=== PATIENT | female | born 1960 | race Caucasian/White ===

== ENCOUNTER 2022-10-25 12:15 | Observation (INO) | payer MEDICAID, SELFPAY ==
[2022-10-25 12:16] VITALS: BP 98/60; PULSE 112; RESP 16; TEMP 36.6; O2SAT 96
--- NOTE | 2022-10-25 12:50 | RAD_ITS ---
STUDY: X-RAY CHEST REASON FOR EXAM: Female, 62 years old. Chest pain TECHNIQUE: Single AP portable view of the chest. COMPARISON: None. FINDINGS: EKG electrodes are seen. The lungs are clear and expanded. There is no demonstrated pleural abnormality. Normal size heart. Normal mediastinum and corey. Normal visualized pulmonary arteries. Normal visualized aortic arch and descending thoracic aorta. There is a levoscoliosis of the thoracic spine. Deformity of the left ribs most likely secondary to prior trauma. Calcific tendinitis of the right shoulder. There is no demonstrated abnormality of the visualized soft tissue structures of the upper abdomen. RAD/Chest 1 View (Portable) IMPRESSION: The lungs are clear. Deformity of the left ribs suggestive of prior trauma. Electronically Signed: Oswald Hurt MD at 13:30 EDT ,
--- NOTE | 2022-10-25 12:50 | EKG12_ITS ---
Test Reason : Blood Pressure : / mmHG Vent. Rate : 112 BPM Atrial Rate : 112 BPM P-R Int : 136 ms QRS Dur : 074 ms QT Int : 310 ms P-R-T Axes : 036 -38 011 degrees QTc Int : 423 ms Sinus tachycardia Left axis deviation Inferior infarct , age undetermined Anterolateral infarct , age undetermined Abnormal ECG Confirmed by SIOMARA SALAZAR, LISA ([id number]), development editor MARY MATA ([id number]) on 10/27/2022 9:35:37 AM Referred By: Confirmed By:LISA STRINGER MD
--- NOTE | 2022-10-25 12:51 | EDS_ITS ---
HPI History of Present Illness Chief Complaint: Syncope Detail of Chief Complaint: Near syncope and chest pain Informant: patient Narrative Narrative: Patient presents to the emergency department complaint of not feeling well for about 3 months. Patient's been following up with her primary care physician who has been doing some work-up and some point they were going to obtain a stress test as she has had some intermittent chest discomfort. She has never had a stress test before and has no known heart history. Today while at work patient began feeling lightheaded and feeling like she was in a pass out x3. Patient's had intermittent retrosternal discomfort and burning sensation. She had discomfort in her left shoulder. Today she has discomfort into her jaw. Patient has history of hypertension and history of sciatica. She denies recent travel or surgery. She has had prior cholecystectomy. She does not smoke. Prior similar symptoms: Yes PFSH PFSH Medical History no medical history Allergy/AdvReac Type Severity Reaction Status Date / Time Seasonal Allergies: Uncoded Allergy Rash Verified 10/25/22 12:18 Social History Smoking Status: Smoker, status unknown ROS ROS ED Review of Systems ROS Unobtainable: other Constitutional Constitutional ED: Reports lethargy; Denies chills, fever(s), sweats or weight loss Eyes Eyes: Denies blurry vision, change in vision or diplopia ENT ENT ED: Denies rhinorrhea or sore throat Cardiovascular Cardiovascular: Reports chest pain; Denies orthopnea or racing heartbeat Respiratory/Chest Respiratory/Chest: Denies cough, dyspnea, dyspnea on exertion, orthopnea or sputum Gastrointestinal Gastrointestinal: Denies abdominal pain, diarrhea, nausea or vomiting Genitourinary Genitourinary ED: Denies dysuria, hematuria or urinary frequency Musculoskeletal Musculoskeletal: Denies arthralgias, back pain, myalgias or neck pain Integumentary Denies abscess, Abrasions or rash Neurologic Neurologic: Reports other Details: Lightheadedness and dizziness ; Denies headache(s) or weakness Psychiatric Psychiatric: Denies anxiety, depression or suicidal thoughts Endocrine Endocrinology: Denies polydipsia, polyphagia or polyuria Hematologic/Lymphatic Hematologic/Lymphatic: Denies easy bleeding, easy bruising or lymphadenopathy Allergic/Immunologic Allergic/Immunologic ED: Denies mouth swelling, tongue swelling or urticaria EXAM Physical Exam Const Vital Signs: 10/25/22 12:16 10/25/22 12:16 10/25/22 12:50 Temperature 97.8 F Temperature Source Temporal Pulse Rate 112 H Respiratory Rate 16 Respiratory Effort Normal Blood Pressure 98/60 Blood Pressure Mean 72 Pulse Ox 96 Oxygen Delivery Method Room Air Room Air Positive well nourished and well developed General Appearance ED: well developed and NAD HEENT Reports TM's clear and moist mucous membranes normocephalic and atraumatic; Negative for trauma or tenderness Tympanic Membrane ED: Yes TM's clear Eyes PERRL and EOMs intact bilaterally General Eye ED: Negative for pale conjunctiva or scleral icterus Neck no lymphadenopathy, supple and no JVD General: Negative for tenderness Chest Wall inspection of chest normal and palpation of chest normal Chest: Negative for tenderness Resp normal respiratory effort and clear to auscultation bilaterally Effort and Inspection: Negative for respiratory distress or pain with movement Auscultation: Negative for rhonchi, wheezes or diminished lung sounds Cardio regular rate, regular rhythm, S1 normal heart sound, S2 normal heart sound and no murmurs Peripheral Pulses: pulses 2+ throughout GI normal to inspection, nondistended, normoactive bowel sounds, soft to palpation, non-tender, non-distended and no masses Back/Spine no CVA tenderness and no thoracic nor lumbar tenderness Extremity normal to inspection General Extremety ED: Negative for edema General Extremity: Negative for edema Neuro oriented x3, CN's II-XII intact bilaterally, no sensory deficits noted and gait normal Sensorium / Orientation: awake, alert, oriented to person, oriented to place and oriented to time Motor Exam: strength 5/5 throughout and strength abnormal Psych mental status grossly normal Skin no rashes or lesions noted and no wounds MDM MDM MDM Narrative Medical decision making narrative: Patient presents to the emergency department with concern for chest pain and not feeling well. In the differential would be acute coronary syndrome versus PE versus cardiac dysrhythmia. She complains of near syncopal episodes today. IV line established. EKG obtained arrival shows sinus rhythm with a ventricular rate of [address] changes. CBC with differential showed an elevated white of 14.9 with hemoglobin of 14.5 and hematocrit of 41 and platelet count of 313. Chemistries showed a sodium 129 which I suspect is related to the elevated blood glucose of 583. BUN was 23 and creatinine 1.96. Troponin was normal. D-dimer ordered and pending. Chest x-ray obtained was unremarkable. Patient was ordered lispro 10 units subcu. Case discussed with hospitalist to evaluate patient for admission for diagnosis chest pain and new onset hyperglycemia. There is no evidence of DKA. Lab Data Labs: Laboratory Results - last 24 hr 10/25/22 10/25/22 10/25/22 12:30 12:30 12:30 WBC 14.9 H RBC 4.40 Hgb 14.5 Hct 41.4 MCV 94.1 MCH 33.0 H MCHC 35.0 RDW Std Deviation 43.3 RDW Coeff of Arvin 12.4 Plt Count 313 MPV 10.6 Immature Gran % (Auto) 0.800 Neut % (Auto) 72.1 H Lymph % (Auto) 19.3 [place] % (Auto) 6.8 Eos % (Auto) 0.5 Baso % (Auto) 0.5 Absolute Neuts (auto) 10.8 H Absolute Lymphs (auto) 2.88 Nucleated RBC % 0 Sodium 129 L Potassium 4.0 Chloride 91 L Carbon Dioxide 25.0 Anion Gap 13 BUN 23 H Creatinine 1.96 H Est GFR (MDRD) Af Amer 33 L Est GFR (MDRD) Non-Af 28 L BUN/Creatinine Ratio 11.7 Glucose 583 H* Calcium 9.5 Troponin I High Sens 4 Cancelled Radiography Diagnostic Testing: Clinical Impression(s) from Imaging Studies Chest X-Ray 10/25/22 12:50 IMPRESSION: The lungs are clear. Deformity of the left ribs suggestive of prior trauma. Electronically Signed: Oswald Hurt MD at 13:30 EDT , 1 view chest x-ray obtained interpreted by myself as no evidence of infiltrate or pneumothorax or acute disease process. Radiology in agreement. EKG Initial EKG: Attestation: I personally reviewed and interpreted this EKG as follows: Comments: Sinus rhythm with a rate of [address] changes Discharge Plan Dx/Rx/DC Orders Clinical Impression: Chest pain, Acute hyperglycemia, Acute renal insufficiency, Near syncope Disposition Disposition: [facility]
[2022-10-25 12:58] LABS: Absolute Lymphocyte Count 2.88 X10^3/uL (0.83-4.51); Absolute Neutrophil Count 10.8 X10^3/uL (2.0-7.7); Basophil# 0.08 X10^3/uL; Basophil% 0.5 % (0-1); Eosinophil# 0.08 X10^3/uL; Eosinophils% 0.5 % (0-5); Hematocrit 41.4 % (37-47); Hemoglobin 14.5 g/dL (12.0-15.0); Lymphocyte # 2.88 X10^3/ul (0.83-4.51); Lymphocyte % 19.3 % (19-41); Mean Corpuscular Volume 94.1 fL (81-99); Mean Platelet Vol. 10.6 fl (6.2-12.0); Monocyte# 1.02 X10^3/uL; Monocyte% 6.8 % (0-10); NRBC Flagged by Analyzer 0 % (0-5); Neutrophil # 10.75 X10^3/uL (2.7-7.7); Neutrophil % 72.1 % (47-70); Platelet Count 313 K/mm3 (150-450); RBC Distribution Width CV 12.4 % (11.6-14.6); RBC Distribution Width SD 43.3 fl (35.1-43.9); White Blood Count 14.9 K/mm3 (4.4-11.0)
[2022-10-25 13:18] LABS: Anion Gap 13 (5-15); BUN 23 mg/dL (7-18); BUN/Creat Ratio 11.7 RATIO (10-20); Calcium,Total 9.5 mg/dL (8.5-10.1); Chloride 91 mmol/L (98-107); Creatinine, Serum 1.96 mg/dL (0.55-1.02); EST Glomerular Filtration Rate 28 mL/min (>60); Est Glom Filt Rate - Afr Amer 33 mL/min (>60); Glucose 583 mg/dL (74-106); Sodium Level 129 mmol/L (136-145); Troponin-I HS (w/2H Reflex) 4 pg/mL (3.0-54.0)
[2022-10-25] MEDS: 0.9% Normal Saline 1,000 ML 150 ML IV ×3 (13:18→21:55)
[2022-10-25] MEDS: Aspirin 81 MG TAB.CHEW 324 MG PO (13:18)
--- NOTE | 2022-10-25 13:31 | HP.PCM.HOS_ITS ---
HPI - General General Date of Admission: 10/25/22 Date of Service: 10/25/22 Chief Complaint: dizziness, chest pain HPI Narrative ARAM GLYNN, is a 62 F with a PMH as outlined who presents via the ED On 10/25/2022 with a complaint of dizziness and lightheadedness and chest pain. SHe said she had been having such recurrent symptoms for ~ 3 months prior to admission, with intermittent chest pain> SHe had been seeing her PCP who had been working her up, and plan was for her to have an outpatient stress test. She said she was at work today when she started having chest pain, lightheadedness and dizziness. She felt like she was going to pass out, but didnt. Her chest pain was retrosternal and burning in nature. Review of systems was otherwise negative. VItals were temperature of 97.8F, with WA of 112, BP of 98/60 and RR of 16. She was saturating at 96% on room air. CBC showed wbc of 14.9, Hb of 14.5 nad platelets of 313. CHemistry showed sodium of 129, bicarb of 25, Cr of 1.96 and glucose of 583. No baseline labs available in the EMR. CXR showed no acute cardiopulmonary process. Initial troponin was negative. EKG showed no acute ST changes. SHe is being admitted to be managed for chest pain to rule out ACS, as well as hyperglycemia in the setting of newly diagnosed diabetes. [facility] Medical History (Updated 10/25/22 @ 14:43 by Narcisa Aparicio) Diabetes Former smoker Hypertension Osteoporosis Medical History no medical history Home Medications amitriptyline 100 mg tablet 100 mg PO DAILY INSOMNIA 10/25/22 [History Last Taken 10/24/22] celecoxib 200 mg capsule 200 mg PO BID PAIN 10/25/22 [History Last Taken 10/25/22] citalopram 20 mg tablet 20 mg PO DAILY DEPRESSION 10/25/22 [History Last Taken 10/25/22] estradiol 0.01% (0.1 mg/gram) vaginal cream 1 applic vaginal UD HORMONES 10/25/22 [History Last Taken Unknown] fluticasone propionate 50 mcg/actuation nasal spray,suspension 1 spray intranasal BID NASAL CONGESTION 10/25/22 [History Last Taken 10/25/22] gabapentin 300 mg capsule 300 mg PO TID NERVE PAIN 10/25/22 [History Last Taken 10/25/22] lisinopril 10 mg tablet 10 mg PO DAILY BLOOD PRESSURE 10/25/22 [History Last Taken 10/25/22] omeprazole 20 mg capsule,delayed release 20 mg PO BID ACID REFLUX 10/25/22 [History Last Taken 10/25/22] Allergy/AdvReac Type Severity Reaction Status Date / Time Seasonal Allergies: Uncoded Allergy Rash Verified 10/25/22 12:18 Surgical History (Updated 10/25/22 @ 14:43 by Narcisa Aparicio) History of cholecystectomy Social History Smoking Status: Smoker, status unknown ROS Constitutional Constitutional: Reports fatigue, malaise and weakness; Denies anorexia, change in weight, chills or fever(s) Eyes Eyes: Denies change in vision ENT HEENT: Denies dysphagia, headache(s) or sore throat Cardiovascular Cardiovascular: Reports lightheadedness and rapid heart rate; Denies chest pain, edema, orthopnea, palpitations, paroxysmal nocturnal dyspnea or syncope Respiratory/Chest Respiratory/Chest: Denies cough, dyspnea, shortness of breath at rest, shortness of breath with exertion or wheezing Gastrointestinal Gastrointestinal: Denies abdominal pain, constipation, diarrhea, nausea or vomiting Genitourinary Genitourinary: Denies burning urination or dysuria Musculoskeletal Musculoskeletal: Denies arthralgias or back pain Neurologic Neurologic: Reports dizziness; Denies confusion, focal weakness, headache(s), numbness, paresthesias, seizure-like activity, seizures or syncope Psychiatric Psychiatric: Denies anxiety or depression Hematologic/Lymphatic Hematologic/Lymphatic: Denies anemia Vital Signs Vital Signs Vital Signs: 10/25/22 12:16 10/25/22 12:16 10/25/22 12:50 Temperature 97.8 F Temperature Source Temporal Pulse Rate 112 H Respiratory Rate 16 Respiratory Effort Normal Blood Pressure 98/60 Blood Pressure Mean 72 Pulse Ox 96 Oxygen Delivery Method Room Air Room Air Physical Exam Const alert, oriented x3 and no apparent distress General Appearance: cooperative HEENT normocephalic, head/scalp atraumatic, hearing grossly normal bilaterally and moist oral mucous membranes Mouth: oral and palatal mucosa normal Resp normal respiratory effort, no retractions, no use of accessory muscles and clear to auscultation bilaterally Cardio regular rhythm, S1 normal heart sound, S2 normal heart sound and no murmurs Cardio Narrative: tachycardic GI normal to inspection, nondistended, normoactive bowel sounds, soft to palpation and non-tender Extremity normal to inspection, full ROM and no clubbing, cyanosis or edema Neuro oriented x3, CN's II-XII intact bilaterally, moves all extremities and no focal motor deficits Sensorium / Orientation: awake and alert Motor Exam: strength 5/5 throughout Psych affect normal Results Lab / Micro Data Result Diagrams: 10/25/22 12:30 10/25/22 12:30 Labs: Laboratory Results - last 24 hr 10/25/22 12:30: WBC 14.9 H, RBC 4.40, Hgb 14.5, Hct 41.4, MCV 94.1, MCH 33.0 H, MCHC 35.0, RDW Std Deviation 43.3, RDW Coeff of Arvin 12.4, Plt Count 313, MPV 10.6, Immature Gran % (Auto) 0.800, Neut % (Auto) 72.1 H, Lymph % (Auto) 19.3, [place] % (Auto) 6.8, Eos % (Auto) 0.5, Baso % (Auto) 0.5, Absolute Neuts (auto) 10.8 H, Absolute Lymphs (auto) 2.88, Nucleated RBC % 0 10/25/22 12:30: Sodium 129 L, Potassium 4.0, Chloride 91 L, Carbon Dioxide 25.0, Anion Gap 13, BUN 23 H, Creatinine 1.96 H, Est GFR (MDRD) Af Amer 33 L, Est GFR (MDRD) Non-Af 28 L, BUN/Creatinine Ratio 11.7, Glucose 583 H*, Calcium 9.5, Troponin I High Sens 4 10/25/22 12:30: Troponin I High Sens Cancelled Radiology Impression Chest X-Ray 10/25/22 12:50 IMPRESSION: The lungs are clear. Deformity of the left ribs suggestive of prior trauma. Electronically Signed: Oswald Hurt MD at 13:30 EDT , Assessment & Plan Assessment/Plan (1) Chest pain: (2) Acute hyperglycemia: (3) Acute renal insufficiency: PLAN: Plan #Hyperglycemia in the setting of probable newly diagnosed diabetes mellitus * admit to PCU * hydrate with IVF * check A1C * was iven SQ lispro 10 units in the ED * will continue and hydrate aggressively with IVF. Anion gap not elevated * if kidney function improves, will place on metformin * A1c is 12.6 the patient started on Lantus 10 units daily. Start on metformin once creatinine improves. * #Chest pain to rule out ACS * initial troponin is negative. Will cycle * EKG showed no acute ST changes * if troponins remain negative, will get stress test tomorrow * check 2D echo * SL nitroglycerin prn * #ANNIA: Cr is 1.96. NO baseline in the EMR. Radha hydrate with IVF and trend Cr. If it doesnt improve, will do further workup. #Near syncope: likely due to hyperglycemia, dehydration and chest pain. PT.OT on board. being hydrated with IVF. Fall precautions DVT prophylaxis: lovenox, renally dosed Code status:full code * Patient counseled extensively about different types of CODE STATUS including full code, DNR CCA and DNR CCA. Patient elects to be full code. * Total [id number] time 18 minutes. Total time spent on evaluation and management of patient, reviewing chart and specialist notes, discussing plan with patient and her , discussion with nursing and ancillary staff as well as documentation: 79 mins Charges/Coding Visit Charges Inpatient E&M: 87802 Init Hosp L3 Procedures Hospitalists Procedures: 65442 Advncd Care Plan 30 Min
[2022-10-25 13:38] VITALS: BP 134/76; PULSE 78; RESP 16; TEMP 36.6; O2SAT 99
[2022-10-25 13:46] LABS: D-Dimer Quantitative (DVT/PE) < 0.27 FEU/ug/m (0.27-0.49)
[2022-10-25 14:01] VITALS: BP 122/74; BP 125/72; BP 135/78; PULSE 86; PULSE 93; PULSE 97
[2022-10-25] MEDS: Insulin Lispro 100 UNIT/ML INSULN.PEN 10 UNIT SC (14:07)
[2022-10-25 14:08] VITALS: BMI 36.9
[2022-10-25 14:10] VITALS: BP 145/78; PULSE 89; RESP 18; TEMP 35.8; O2SAT 98
[2022-10-25 14:17] LABS: Mucous, Urine 0 SEEN /hpf (<or=2+)
[2022-10-25 14:20] VITALS: BP 137/62; PULSE 92; RESP 17; TEMP 36.7; O2SAT 96
--- NOTE | 2022-10-25 14:30 | EKG12_ITS ---
Test Reason : POST ADMISSION Blood Pressure : / mmHG Vent. Rate : 086 BPM Atrial Rate : 086 BPM P-R Int : 158 ms QRS Dur : 070 ms QT Int : 326 ms P-R-T Axes : 036 -35 013 degrees QTc Int : 390 ms Normal sinus rhythm Left axis deviation Inferior infarct , age undetermined Anteroseptal infarct , age undetermined Abnormal ECG When compared with ECG of 25-OCT-2022 12:26, MANUAL COMPARISON REQUIRED, DATA IS UNCONFIRMED Confirmed by SIOMARA SALAZAR, LISA ([id number]), production editor MARY MATA ([id number]) on 10/27/2022 10:01:30 AM Referred By: CHIN Confirmed By:LISA STRINGER MD
[2022-10-25 14:37] VITALS: BMI 34.5
[2022-10-25 14:53] LABS: Reflex Troponin-HS? (from REC) Y
[2022-10-25 15:07] LABS: Color, Urine Yellow (Yellow); Glucose, Dipstick 1000 mg/dl (Normal); Ketone-Dipstick Negative (Negative); Leukocyte Esterase-Dipstick 100 /ul (Negative); Nitrite-Dipstick Negative (Negative); Occult Blood-Urine 25 /ul (Negative); Protein-Dipstick 30 mg/dl (Negative); Urine Bilirubin Dipstick Negative (Negative); Urine Clarity Sl. Cloudy (Clear); Urine Urobilinogen Normal (Normal)
[2022-10-25 15:18] LABS: Amorphous Sediment 1+ URATE; Bacteria 1+ /hpf (None Seen); Red Blood Cells-Urine 0-5 SEEN /hpf (0-5); Squamous Epithelial Cells - UA 5-10 SEEN /hpf (5-10); White Blood Cells 5-10 SEEN /hpf (0-5)
[2022-10-25 15:36] LABS: Bedside Glucose 365 mg/dL (74-106)
[2022-10-25 16:27] LABS: Troponin-I HS 4 pg/mL (3.0-54.0)
[2022-10-25 17:10] LABS: Bedside Glucose 407 mg/dL (74-106)
[2022-10-25 18:05] LABS: Hemoglobin A1c 12.6 % (3.8-5.6)
[2022-10-25 19:37] LABS: Troponin-I HS < 3 pg/mL (3.0-54.0)
[2022-10-25 20:45] VITALS: BP 115/58; PULSE 83; RESP 16; TEMP 36.5; O2SAT 97
[2022-10-25] MEDS: Gabapentin 300 MG Capsule PO (21:55)
[2022-10-25] MEDS: Insulin Glargine-YFGN 100 UNIT/ML Pen 10 UNIT SC (21:59)
[2022-10-25] MEDS: Insulin Lispro 100 UNIT/ML INSULN.PEN SC (22:01)
[2022-10-25] MEDS: Pantoprazole Sodium 20 MG Tablet PO (22:06)
[2022-10-25 23:56] LABS: Bedside Glucose 376 mg/dL (74-106)
[2022-10-26 02:45] VITALS: BP 110/64; PULSE 80; RESP 16; TEMP 36.1; O2SAT 96
[2022-10-26 05:52] LABS: Absolute Lymphocyte Count 3.17 X10^3/uL (0.83-4.51); Absolute Neutrophil Count 5.5 X10^3/uL (2.0-7.7); Basophil# 0.07 X10^3/uL; Basophil% 0.7 % (0-1); Eosinophil# 0.22 X10^3/uL; Eosinophils% 2.3 % (0-5); Hemoglobin 12.5 g/dL (12.0-15.0); Lymphocyte # 3.17 X10^3/ul (0.83-4.51); Lymphocyte % 32.6 % (19-41); Mean Corp Hgb Conc 32.9 g/dL (32-36); Mean Corpuscular Hgb 31.6 pg (27.0-32.0); Mean Corpuscular Volume 96.2 fL (81-99); Mean Platelet Vol. 10.6 fl (6.2-12.0); Monocyte# 0.67 X10^3/uL; Monocyte% 6.9 % (0-10); NRBC Flagged by Analyzer 0 % (0-5); Neutrophil # 5.53 X10^3/uL (2.7-7.7); Neutrophil % 56.9 % (47-70); Platelet Count 274 K/mm3 (150-450); RBC Distribution Width CV 12.7 % (11.6-14.6); RBC Distribution Width SD 45.4 fl (35.1-43.9); Red Blood Count 3.95 M/mm3 (4.2-5.4); White Blood Count 9.7 K/mm3 (4.4-11.0)
--- NOTE | 2022-10-26 05:55 | ECHOD_ITS ---
Reason For Study: Chest pain Procedure This was a 2D Doppler, Color Flow transthoracic echocardiogram. Exam performed in department. Left Ventricle Normal left ventricle. The estimated ejection fraction is 55-60% %. Right Ventricle Normal right ventricle. Normal systolic function. Atria Normal left atrium. Normal right atrium. Mitral Valve The mitral valve is structurally normal. No prolapse or stenosis seen. Trivial mitral valve insufficiency. Tricuspid Valve Normal tricuspid valve. Trivial tricuspid valve insufficiency. Aortic Valve Normal aortic valve. Mild (1+) aortic valve insufficiency. Pulmonic Valve The pulmonic valve is not well visualized. Great Vessels Normal aortic root. Pericardium/Pleural No pericardial effusion. MMode/2D Measurements & Calculations LVIDd: 4.1 cm IVSd: 0.93 cm Ao root diam: 3.0 cm LVIDs: 2.6 cm LVPWd: 0.97 cm RVDd: 2.9 cm FS: 36.4 % LAV(MOD-bp): 33.7 ml LVAd ap4: 22.2 cm2 LVAd ap2: 23.9 cm2 LAV(MOD-bp) Indexed: 17.6 ml/m2 LVLd ap4: 7.1 cm LVLd ap2: 7.4 cm LAV(MOD-sp2): 38.6 ml EDV(MOD-sp4): 59.3 ml EDV(MOD-sp2): 65.9 ml LAV(MOD-sp4): 29.5 ml EDV(sp4-el): 58.7 ml EDV(sp2-el): 65.9 ml LVAs ap4: 12.1 cm2 LVAs ap2: 14.5 cm2 LVLs ap4: 5.7 cm LVLs ap2: 6.6 cm ESV(MOD-sp4): 22.2 ml ESV(MOD-sp2): 28.1 ml ESV(sp4-el): 22.0 ml ESV(sp2-el): 27.2 ml EF(MOD-sp4): 62.5 % EF(MOD-sp2): 57.3 % EF(sp4-el): 62.6 % SV(MOD-sp4): 37.0 ml SV(MOD-sp2): 37.8 ml SV(sp4-el): 36.7 ml LA dimension(2D): 3.5 cm LA A4 area: 13.4 cm2 RA A4 area: 10.3 cm2 TAPSE: 2.0 cm Time Measurements MV dec time: 0.23 sec Doppler Measurements & Calculations MV E max avelino: 68.8 cm/sec Lat Peak E' Avelino: 10.3 cm/sec Med Peak E' Avelino: 7.5 cm/sec MV A max avelino: 97.4 cm/sec E/E' lat: 6.7 E/E' med: 9.2 MV E/A: 0.71 MV dec slope: 295.7 cm/sec2 Ao V2 max: 156.7 cm/sec AI max avelino: 451.2 cm/sec Ao max P.8 mmHg AI max P.4 mmHg Ao V2 mean: 112.6 cm/sec AI dec slope: 315.1 cm/sec2 Ao mean P.7 mmHg AI P1/2t: 419.4 msec Ao V2 VTI: 32.1 cm AV (velocity ratio): 0.69 LV V1 max: 115.9 cm/sec PA V2 max: 99.9 cm/sec LV V1 max P.4 mmHg LV V1 mean P.9 mmHg LV V1 mean: 80.0 cm/sec LV V1 VTI: 22.2 cm ECHO/Echo Complete Interpretation Summary The estimated ejection fraction is 55-60% %. No previous echocardiogram to compare Ordering Physician: Carey Garcia Referring Physician: Kartik Patel MD Performed By: Tonya De Leon RDCS
[2022-10-26] MEDS: Gabapentin 300 MG Capsule PO ×2 (06:15→14:27)
[2022-10-26 06:50] LABS: Bedside Glucose 206 mg/dL (74-106)
[2022-10-26 06:56] LABS: Anion Gap 5 (5-15); BUN 21 mg/dL (7-18); BUN/Creat Ratio 32.9 RATIO (10-20); Calcium,Total 8.8 mg/dL (8.5-10.1); Chloride 104 mmol/L (98-107); Creatinine, Serum 0.64 mg/dL (0.55-1.02); EST Glomerular Filtration Rate 101 mL/min (>60); Est Glom Filt Rate - Afr Amer 122 mL/min (>60); Estimated Creatinine Clearance 77.33 ml/min; Glucose 172 mg/dL (74-106); Potassium 4.1 mmol/L (3.5-5.1); Sodium Level 139 mmol/L (136-145)
[2022-10-26 08:45] VITALS: BP 128/89; PULSE 88; RESP 18; TEMP 36.8; O2SAT 93
[2022-10-26] MEDS: Pantoprazole Sodium 20 MG Tablet PO (08:51)
[2022-10-26] MEDS: Citalopram 20 MG Tablet PO (08:51)
[2022-10-26] MEDS: 0.9% Normal Saline 1,000 ML 150 ML IV (08:57)
--- NOTE | 2022-10-26 09:39 | PN.HOSP_ITS ---
Objective Data Objective Data Vital Signs: Vital Signs Temp Pulse Resp BP Pulse Ox O2 Del Method 98.2 F 88 18 128/89 H 93 Room Air 10/26/22 08:45 10/26/22 08:45 10/26/22 08:45 10/26/22 08:45 10/26/22 08:45 10/26/22 08:45 Oxygen Delivery Method Room Air Weight: 195 lb 1.745 oz Body Mass Index (BMI) 34.5 Intake & Output: Intake and Output for Last 24 Hours 10/24/22 10/25/22 10/26/22 23:59 23:59 23:59 Intake Total 2240 / 2240 1000 / 1000 Balance 2240 / 2240 1000 / 1000 Lab / Micro Data Result Diagrams: 10/26/22 04:55 10/26/22 04:55 Labs: Laboratory Results - last 24 hr 10/25/22 12:30: WBC 14.9 H, RBC 4.40, Hgb 14.5, Hct 41.4, MCV 94.1, MCH 33.0 H, MCHC 35.0, RDW Std Deviation 43.3, RDW Coeff of Arvin 12.4, Plt Count 313, MPV 10.6, Immature Gran % (Auto) 0.800, Neut % (Auto) 72.1 H, Lymph % (Auto) 19.3, [place] % (Auto) 6.8, Eos % (Auto) 0.5, Baso % (Auto) 0.5, Absolute Neuts (auto) 10.8 H, Absolute Lymphs (auto) 2.88, Nucleated RBC % 0 10/25/22 12:30: Sodium 129 L, Potassium 4.0, Chloride 91 L, Carbon Dioxide 25.0, Anion Gap 13, BUN 23 H, Creatinine 1.96 H, Est GFR (MDRD) Af Amer 33 L, Est GFR (MDRD) Non-Af 28 L, BUN/Creatinine Ratio 11.7, Glucose 583 H*, Calcium 9.5, Troponin I High Sens 4 10/25/22 12:30: D-Dimer Quant (PE/DVT) < 0.27 L 10/25/22 12:30: Troponin I High Sens Cancelled 10/25/22 12:30: Hemoglobin A1c 12.6 H 10/25/22 14:05: Urine Color Yellow, Urine Clarity Sl. Cloudy, Urine pH 6.0, Ur Specific [place] 1.010, Urine Protein 30 H, Urine Glucose (UA) 1000 H, Urine Ketones Negative, Urine Occult Blood 25 H, Urine Nitrite Negative, Urine Bilirubin Negative, Urine Urobilinogen Normal, Ur Leukocyte Esterase 100 H, Urine RBC 0-5 SEEN, Urine WBC 5-10 SEEN, Ur Squamous Epith Cells 5-10 SEEN, Amorphous Sediment 1+ URATE, Urine Bacteria 1+, Urine Mucus 0 SEEN 10/25/22 15:03: Troponin I High Sens 4 10/25/22 15:10: POC Glucose 365 H 10/25/22 16:53: POC Glucose 407 H 10/25/22 18:50: Troponin I High Sens < 3 L 10/25/22 21:58: POC Glucose 376 H 10/26/22 04:55: WBC 9.7, RBC 3.95 L, Hgb 12.5, Hct 38.0, MCV 96.2, MCH 31.6, M CHC 32.9 D, RDW Std Deviation 45.4 H, RDW Coeff of Arvin 12.7, Plt Count 274, MPV 10.6, Immature Gran % (Auto) 0.600, Neut % (Auto) 56.9, Lymph % (Auto) 32.6, [place] % (Auto) 6.9, Eos % (Auto) 2.3, Baso % (Auto) 0.7, Absolute Neuts (auto) 5.5, Absolute Lymphs (auto) 3.17, Nucleated RBC % 0 10/26/22 04:55: Sodium 139, Potassium 4.1, Chloride 104, Carbon Dioxide 30.0, Anion Gap 5, BUN 21 H, Creatinine 0.64, Estim Creat Clear Calc 77.33, Est GFR (MDRD) Af Amer 122, Est GFR (MDRD) Non-Af 101, BUN/Creatinine Ratio 32.9 H, Glucose 172 H, Calcium 8.8 10/26/22 06:18: POC Glucose 206 H Radiography Diagnostic Testing: Radiology Impression Chest X-Ray 10/25/22 12:50 IMPRESSION: The lungs are clear. Deformity of the left ribs suggestive of prior trauma. Electronically Signed: Oswald Hurt MD at 13:30 EDT , Assessment & Plan Assessment/Plan (1) Chest pain: (2) Acute hyperglycemia: (3) Acute renal insufficiency: PLAN: Plan #Hyperglycemia in the setting of probable newly diagnosed diabetes mellitus * admit to PCU * hydrate with IVF * check A1C * was iven SQ lispro 10 units in the ED * will continue and hydrate aggressively with IVF. Anion gap not elevated * if kidney function improves, will place on metformin * A1c is 12.6 the patient started on Lantus 10 units daily. Start on metformin once creatinine improves. * #Chest pain to rule out ACS * initial troponin is negative. Will cycle * EKG showed no acute ST changes * if troponins remain negative, will get stress test tomorrow * check 2D echo * SL nitroglycerin prn * #ANNIA: Cr is 1.96. NO baseline in the EMR. Radha hydrate with IVF and trend Cr. If it doesnt improve, will do further workup. #Near syncope: likely due to hyperglycemia, dehydration and chest pain. PT.OT on board. being hydrated with IVF. Fall precautions DVT prophylaxis: lovenox, renally dosed Code status:full code * Patient counseled extensively about different types of CODE STATUS including full code, DNR CCA and DNR CCA. Patient elects to be full code. * Total [id number] time 18 minutes. Total time spent on evaluation and management of patient, reviewing chart and specialist notes, discussing plan with patient and her , discussion with nursing and ancillary staff as well as documentation: 79 mins
--- NOTE | 2022-10-26 10:40 | CASEMGMT ---
RN CM Face to Face with patient for initial transition planning/care coordination assessment. RN CM introduced self and role at [facility]. Patient lying in bed, alert and oriented. Patient willing to participate in assessment and is able to answer all questions appropriately. Care providers, pharmacy, and demographics verified. Patient wishes to discharge home, denies need for home health at this time. Patient states she has no further needs or concerns at this time. CM to follow for discharge planning needs that may arise. PCP: Jorge Specialists: none Preferred Pharmacy: [facility] Insurance: [employer] Prescription Benefit: yes Living Will/HPOA: yes, Ayaz Molina LNOK: , son, daughter Living Arrangements: Patient lives with in a mobile home with 2 steps and railing or ramp to enter the home. Patient states she is independent at home. Transportation: self, family DME/HHC: Patient has shower chair, crutches, walker at home. Patient will need glucometer at discharge. No previous HHC or SNF. Disposition Plan: Patient to discharge home with family support and follow-up plans in place. Agueda AUGUSTIN, RN, CM
--- NOTE | 2022-10-26 10:51 | PCM.DC ---
Discharge Instructions Diet Discharge Diet: Low fat / Low cholesterol, 1800 Calorie Control Diet and 2000 mg Sodium Diet Activity Discharge Activity: Return to Normal Activity Weight Bearing Status: Weight bearing as tolerated Dressing / Incision Call your doctor if you observe: Fever of 101 or Higher, Coldness, Increased Pain, Numbness or Tingling, Change in Color, Inability to urinate, Inability to have a bowel movement, Using more than 1 pad per hour, Shortness of breath, Dizziness, Fainting spells, Swelling in the ankles, Chest pain, Prolonged hiccupping, Increased palpitations (irregular heartbeat) and Calf discomfort Follow Up Care When: IN 2 WEEKS Test Results: Test results from this visit will be discussed in further detail at your follow-up appointment, if applicable. Discharge Plan Admission Admit Date/Time: 10/25/22 13:43 Primary Reason for Your Visit: Atypical chest pain, new onset diabetes mellitus. Attending Provider: Gavino Enamorado Primary Care Provider: Kartik Patel Consulting Providers: Carey Garcia Instructions Forms: Work / School Excuse Discharge Orders/Prescriptions Prescriptions: New insulin lispro [Humalog KwikPen Insulin] 100 unit/mL Insulin Pen See Protocol subcut ACHS Qty: 0 0RF Protocol: 4. Sliding Scale Insulin High-Med Dosing Condition: 150-199 mg/dl = 2 units Condition: 200-259 mg/dl = 4 units Condition: 260-324 mg/dl = 6 units Condition: 325-374 mg/dl = 8 units Condition: 375-409 mg/dl = 10 units Condition: 410-449 mg/dl = 11 units Condition: Greater than 449 call physician Protocol Text: - Use for Total Daily Dose of Insulin 56-80 units - Patient who are insulin resistant or septic HIGH MEDIUM DOSING ALGORITHM insulin lispro [Humalog KwikPen Insulin] 100 unit/mL insulin pen 8 unit subcut TIDCM Qty: 15 0RF Rx Instructions: Hold if glucose less than 130 mg/dl insulin glargine [Lantus Solostar U-100 Insulin] 100 unit/mL (3 mL) insulin pen 15 unit subcut QPM Qty: 15 3RF Rx Instructions: Hold if glucose less than 130 mg/dl (DME) needle (disp) 32 gauge 32 gauge x 5/16 needle See Rx Instructions .Route Qty: 100 0RF Rx Instructions: As directed Continued citalopram 20 mg tablet 20 mg PO DAILY lisinopril 10 mg tablet 10 mg PO DAILY gabapentin 300 mg capsule 300 mg PO TID omeprazole 20 mg capsule,delayed release(DR/EC) 20 mg PO BID estradiol 0.01 % (0.1 mg/gram) cream 1 applic VAGINAL UD fluticasone propionate 50 mcg/actuation spray,suspension 1 spray INTRANASAL BID amitriptyline 100 mg tablet 100 mg PO QHS Changed celecoxib 200 mg capsule 200 mg PO BID PRN (Reason: arthritis pain) 30 Days Qty: 0 0RF Other Ambulatory Orders: Glucometer (Routine) Timeframe: 1 Day Location: Determined by Patient Ordered By: Dr. Gavino Enamorado Referrals / Follow Up: Bee Madison MD [Med Staff - Picking Machine Operator] - Kartik Patel MD [Primary Care Provider] - Disposition Disposition (needs filled in before D/C Order can be placed): Home, Self Care
[2022-10-26] MEDS: Acetaminophen 325 MG Tablet 650 MG PO (11:16)
[2022-10-26] MEDS: Insulin Lispro 100 UNIT/ML INSULN.PEN SC (11:25)
--- NOTE | 2022-10-26 11:38 | STRESSREP ---
Stress Test Report Treadmill myocardial perfusion stress test. Indication; 62-year-old patient who presented with symptoms of dizziness lightheadedness and chest pain to the ER at [facility] Evidently she had recurrent episode of symptoms for nearly 3 months and intermittent symptoms of chest pain She was seen by her primary care physician and was planning for outpatient stress test Patient has multiple risk factor for CAD with diabetes mellitus, hypertension, former smoker. And had intermittent symptoms of chest pain. Based on her clinical presentation she underwent treadmill myocardial fusion study. Stress protocol: Resting EKG demonstrates. Normal sinus rhythm. Patient exercised according to standard Isidoro protocol, for 5 minutes and second achieving a work level of maximum METS 7.0 The resting heart rate of 85 bpm, roxi to a maximum heart rate of 130 bpm. This value represented 81% of the maximal age-predicted heart rate. The resting blood pressure of 128/74 mmHg. Roxi to a maximum blood pressure of 150/71 mmHg. The exercise test was stopped due to dyspnea and sciatica pain Also note patient reached only 81% of the predicted heart rate. Stress EKG showed[, no significant change from the resting EKG, with maximum heart rate of 130 bpm. Arrhythmia: No arrhythmia demonstrated Symptoms: Patient had no symptoms of chest pain Myocardial perfusion protocol. [12 mCi ]of Technetium 99m Sestamibi was injected at rest. Following maximal stress, 35.3 mCi ]of Technetium 99m sestamibi was injected. Stress images were obtained stress and rest images were reconstructed and compared in the short axis vertical and horizontal long axis. Gated images were also obtained Perfusion SPECT analysis: Review of the images demonstrate normal uptake of sestamibi at rest, post stress images demonstrate similar uptake of sestamibi to the resting images, homogeneous tracer uptake With no evidence of reversible myocardial ischemia. Gated SPECT analysis: The gated ejection fraction is 75%, Hyperdynamic left ventricle Conclusion: Negative treadmill myocardial perfusion study for reversible myocardial ischemia Hyperdynamic left ventricle. Limited exercise tolerance, due to sciatica and achieve 81% of the predicted heart rate. Erik Dominguez MD,FACC,[facility]
[2022-10-26 11:45] LABS: Bedside Glucose 329 mg/dL (74-106)
--- NOTE | 2022-10-26 13:42 | DS.PCM_ITS ---
Providers Date of Admission: 10/25/22 Date of Discharge: 10/26/22 Primary Care Physician: Dr. Kartik Patel MD Reason For Visit: CHEST PAIN, HYPERGLYCEMIA Diagnosis Discharge Diagnosis (1) Chest pain: Status: Acute Code(s): R07.9 - Chest pain, unspecified (2) Acute hyperglycemia: Status: Acute Code(s): R73.9 - Hyperglycemia, unspecified (3) Acute renal insufficiency: Status: Acute Code(s): N28.9 - Disorder of kidney and ureter, unspecified Plan This is a 62-year-old female was admitted on 10/25 with complaint of dizziness and lightheadedness and chest pain for about 3 months prior to admission. She had intermittent chest pain and was planning outpatient stress test but got chest pain during work therefore admitted. She describes her chest pain as retrosternal and burning in nature. No syncope. #Hyperglycemia in the setting of probable newly diagnosed diabetes mellitus * admit to PCU. She was admitted with glucose 583 on BMP. A1c 12.6. Patient is started on Lantus and Humalog insulin. Aggressive IV fluid rehydration was done. I would not restart metformin but leave it for PCP once creatinine is normal. Patient is discharged on Humalog and Lantus insulin with Accu-Chek before meals and at bedtime cover with Humalog sliding scale. Glucometer and insulin needle prescription was given. * Patient wants to go home. Was advised to stay for 1 more day for better control of glucose but she states she knows how to give insulin as she has been managing diabetes of her with insulin. #Atypical chest pain. ACS was ruled out. Serial troponin enzymes negative. Chest pain to rule out ACS * EKG showed no acute ST changes Pharmacological nuclear rest test was negative for acute ischemia. 2D echo shows EF 55 to 60%. #ANNIA: Cr is 1.96. NO baseline in the EMR. 10/26: Patient will be grossly dehydrated. ANNIA seems prerenal etiology because of hyperglycemia. Repeat labs shows BUN 21 creatinine 0.64. ANNIA resolved. #Near syncope: likely due to hyperglycemia, dehydration and chest pain. PT.OT on board. being hydrated with IVF. Patient complained of mild headache. Tylenol given. Patient is tolerating therefore 1 dose Toradol 15 mg given. DVT prophylaxis: lovenox, renally dosed Code status:full code * Patient counseled extensively about different types of CODE STATUS including full code, DNR CCA and DNR CCA. Patient elects to be full code. Discharge medication reconciliation done. Discharge follow-up instructions completed. Discharge process discussed with the patient and all questions were answered to patient's satisfaction. Total time spent, exact 35 minutes on discharge meds reconciliation, examination, coordination of care with nurses and ancillary staff, review of imaging and blood test and discussion with the patient on follow-up instructions. Clinical Impression(s) from Imaging Studies Chest X-Ray 10/25/22 12:50 IMPRESSION: The lungs are clear. Deformity of the left ribs suggestive of prior trauma. Echocardiogram 10/26/22 05:55 Interpretation Summary The estimated ejection fraction is 55-60% %. No previous echocardiogram to compare Laboratory Results 10/25/22 12:30: Hemoglobin A1c 12.6 H 10/25/22 14:05: Urine Color Yellow, Urine Clarity Sl. Cloudy, Urine pH 6.0, Ur Specific [place] 1.010, Urine Protein 30 H, Urine Glucose (UA) 1000 H, Urine Ketones Negative, Urine Occult Blood 25 H, Urine Nitrite Negative, Urine Bilirubin Negative, Urine Urobilinogen Normal, Ur Leukocyte Esterase 100 H, Urine RBC 0-5 SEEN, Urine WBC 5-10 SEEN, Ur Squamous Epith Cells 5-10 SEEN, Amorphous Sediment 1+ URATE, Urine Bacteria 1+, Urine Mucus 0 SEEN 10/25/22 15:03: Troponin I High Sens 4 10/25/22 15:10: POC Glucose 365 H 10/25/22 16:53: POC Glucose 407 H 10/25/22 18:50: Troponin I High Sens < 3 L 10/25/22 21:58: POC Glucose 376 H 10/26/22 04:55: WBC 9.7, RBC 3.95 L, Hgb 12.5, Hct 38.0, MCV 96.2, MCH 31.6, MCHC 32.9 D, RDW Std Deviation 45.4 H, RDW Coeff of Arvin 12.7, Plt Count 274, MPV 10.6, Immature Gran % (Auto) 0.600, Neut % (Auto) 56.9, Lymph % (Auto) 32.6, [place] % (Auto) 6.9, Eos % (Auto) 2.3, Baso % (Auto) 0.7, Absolute Neuts (auto) 5.5, Absolute Lymphs (auto) 3.17, Nucleated RBC % 0 10/26/22 04:55: Sodium 139, Potassium 4.1, Chloride 104, Carbon Dioxide 30.0, Anion Gap 5, BUN 21 H, Creatinine 0.64, Estim Creat Clear Calc 77.33, Est GFR (MDRD) Af Amer 122, Est GFR (MDRD) Non-Af 101, BUN/Creatinine Ratio 32.9 H, Gluc ose 172 H, Calcium 8.8 10/26/22 06:18: POC Glucose 206 H 10/26/22 11:23: POC Glucose 329 H Medications at Discharge Home Medications amitriptyline 100 mg tablet 100 mg PO QHS INSOMNIA 10/25/22 citalopram 20 mg tablet 20 mg PO DAILY DEPRESSION 10/25/22 estradiol 0.01% (0.1 mg/gram) vaginal cream 1 applic vaginal UD HORMONES 10/25/22 fluticasone propionate 50 mcg/actuation nasal spray,suspension 1 spray intranasal BID NASAL CONGESTION 10/25/22 gabapentin 300 mg capsule 300 mg PO TID NERVE PAIN 10/25/22 lisinopril 10 mg tablet 10 mg PO DAILY BLOOD PRESSURE 10/25/22 omeprazole 20 mg capsule,delayed release 20 mg PO BID ACID REFLUX 10/25/22 celecoxib 200 mg capsule 200 mg PO BID PRN arthritis pain 30 days #0 caps 10/26/22 insulin glargine 100 unit/mL (3 mL) subcutaneous pen (Lantus Solostar U-100 Insulin) 15 unit (0.15 mL) subcut QPM #15 mL 10/26/22 insulin lispro 100 unit/mL subcutaneous pen (Humalog KwikPen (U-100) Insulin) 8 unit (0.08 mL) subcut TIDCM #15 mL 10/26/22 insulin lispro 100 unit/mL subcutaneous pen (Humalog KwikPen (U-100) Insulin) See Protocol subcut ACHS #0 mL 10/26/22 needle (disp) 32 gauge 32 gauge x 10/25 #100 ea 10/26/22 Physical Exam Narrative Seen and examined. Patient is states her chest pain more related to musculoskeletal/muscular pain. She states she does a lot of work like pushing and pulling and take cares of her . Physical exam General: Alert, Oriented x3, Cooperative, obesity grade 3, 34.6 kg/m?. HEENT: Atraumatic, PERRLA, EOMI, Normocephalic. No scalp tenderness. Oral: Oral mucosa moist. No Gingival or Mucosal Lesions/ Ulcerations Neck: Supple, No JVD, Negative Carotid Bruits Lungs: Air entry diminished in bilateral lung bases. No crepitation/rhonchi Cardiovascular: Regular rate, Regular Rhythm, Normal S1, Normal S2, No murmurs Abdomen: Bowel Sounds Present, Soft, Non Tender, Non-Distended : No renal angle tenderness. No suprapubic tenderness. Extremities: No edema, Capillary Refill Less than 3 Seconds Skin: No rashes, No breakdown Musculoskeletal: No Tenderness to Palpation of Joints or Extremities. ROM intact. Neurological: Cranial nerves II-XII grossly intact, DTR 2+/4 and Symmetrical, Neuro grossly intact Psych/Mental Status: Normal Affect, Appropriate. Weight / BMI Weight Weight: 195 lb 1.745 oz Body Mass Index (BMI) 34.5 ABG / Lab / Microbiology Data Result Diagrams: 10/26/22 04:55 10/26/22 04:55 Laboratory: Laboratory Results - last 24 hr 10/25/22 12:30: D-Dimer Quant (PE/DVT) < 0.27 L 10/25/22 12:30: Hemoglobin A1c 12.6 H 10/25/22 14:05: Urine Color Yellow, Urine Clarity Sl. Cloudy, Urine pH 6.0, Ur Specific [place] 1.010, Urine Protein 30 H, Urine Glucose (UA) 1000 H, Urine Ketones Negative, Urine Occult Blood 25 H, Urine Nitrite Negative, Urine Bilirubin Negative, Urine Urobilinogen Normal, Ur Leukocyte Esterase 100 H, Urine RBC 0-5 SEEN, Urine WBC 5-10 SEEN, Ur Squamous Epith Cells 5-10 SEEN, Amorphous Sediment 1+ URATE, Urine Bacteria 1+, Urine Mucus 0 SEEN 10/25/22 15:03: Troponin I High Sens 4 10/25/22 15:10: POC Glucose 365 H 10/25/22 16:53: POC Glucose 407 H 10/25/22 18:50: Troponin I High Sens < 3 L 10/25/22 21:58: POC Glucose 376 H 10/26/22 04:55: WBC 9.7, RBC 3.95 L, Hgb 12.5, Hct 38.0, MCV 96.2, MCH 31.6, MCHC 32.9 D, RDW Std Deviation 45.4 H, RDW Coeff of Arvin 12.7, Plt Count 274, MPV 10.6, Immature Gran % (Auto) 0.600, Neut % (Auto) 56.9, Lymph % (Auto) 32.6, [place] % (Auto) 6.9, Eos % (Auto) 2.3, Baso % (Auto) 0.7, Absolute Neuts (auto) 5.5, Absolute Lymphs (auto) 3.17, Nucleated RBC % 0 10/26/22 04:55: Sodium 139, Potassium 4.1, Chloride 104, Carbon Dioxide 30.0, Anion Gap 5, BUN 21 H, Creatinine 0.64, Estim Creat Clear Calc 77.33, Est GFR (MDRD) Af Amer 122, Est GFR (MDRD) Non-Af 101, BUN/Creatinine Ratio 32.9 H, Glucose 172 H, Calcium 8.8 10/26/22 06:18: POC Glucose 206 H 10/26/22 11:23: POC Glucose 329 H Radiography Diagnostic Testing: Radiology Impression Echocardiogram 10/26/22 05:55 Interpretation Summary The estimated ejection fraction is 55-60% %. No previous echocardiogram to compare Ordering Physician: Carey Garcia Referring Physician: Kartik Patel MD Performed By: Tonya De Leon RDCS D/C Instructions Discharge Diet: Low fat / Low cholesterol, 1800 Calorie Control Diet and 2000 mg Sodium Diet Weight Bearing Status: Weight bearing as tolerated Call your doctor if you observe: Fever of 101 or Higher, Coldness, Increased Pain, Numbness or Tingling, Change in Color, Inability to urinate, Inability to have a bowel movement, Using more than 1 pad per hour, Shortness of breath, Diz ziness, Fainting spells, Swelling in the ankles, Chest pain, Prolonged hiccupping, Increased palpitations (irregular heartbeat) and Calf discomfort When: IN 2 WEEKS Meaningful Use Info Meaningful Use Diagnoses (Choose all that apply): None applicable Discharge Plan Admission Admit Date/Time: 10/25/22 13:43 Primary Reason for Your Visit: Atypical chest pain, new onset diabetes mellitus. Attending Provider: Gavino Enamorado Primary Care Provider: Kartik Patel Consulting Providers: Carey Garcia Instructions Forms: Work / School Excuse Discharge Orders/Prescriptions Prescriptions: New insulin lispro [Humalog KwikPen Insulin] 100 unit/mL Insulin Pen See Protocol subcut ACHS Qty: 0 0RF Protocol: 4. Sliding Scale Insulin High-Med Dosing Condition: 150-199 mg/dl = 2 units Condition: 200-259 mg/dl = 4 units Condition: 260-324 mg/dl = 6 units Condition: 325-374 mg/dl = 8 units Condition: 375-409 mg/dl = 10 units Condition: 410-449 mg/dl = 11 units Condition: Greater than 449 call physician Protocol Text: - Use for Total Daily Dose of Insulin 56-80 units - Patient who are insulin resistant or septic HIGH MEDIUM DOSING ALGORITHM insulin lispro [Humalog KwikPen Insulin] 100 unit/mL insulin pen 8 unit subcut TIDCM Qty: 15 0RF Rx Instructions: Hold if glucose less than 130 mg/dl insulin glargine [Lantus Solostar U-100 Insulin] 100 unit/mL (3 mL) insulin pen 15 unit subcut QPM Qty: 15 3RF Rx Instructions: Hold if glucose less than 130 mg/dl (DME) needle (disp) 32 gauge 32 gauge x 5/16 needle See Rx Instructions .Route Qty: 100 0RF Rx Instructions: As directed Continued citalopram 20 mg tablet 20 mg PO DAILY lisinopril 10 mg tablet 10 mg PO DAILY gabapentin 300 mg capsule 300 mg PO TID omeprazole 20 mg capsule,delayed release(DR/EC) 20 mg PO BID estradiol 0.01 % (0.1 mg/gram) cream 1 applic VAGINAL UD fluticasone propionate 50 mcg/actuation spray,suspension 1 spray INTRANASAL BID amitriptyline 100 mg tablet 100 mg PO QHS Changed celecoxib 200 mg capsule 200 mg PO BID PRN (Reason: arthritis pain) 30 Days Qty: 0 0RF Other Ambulatory Orders: Glucometer (Routine) Timeframe: 1 Day Location: Determined by Patient Ordered By: Dr. Gavino Enamorado Referrals / Follow Up: Bee Madison MD [Med Staff - Color Coater] - Kartik Patel MD [Primary Care Provider] - Disposition Disposition (needs filled in before D/C Order can be placed): Home, Self Care Charges/Coding Addendum Addendum: Patient was expected to have more than 2 midnight stays because of ANNIA, uncontrolled hyperglycemia with glucose more than 400, A1c 12.6% and atypical chest pain. Glucose was controlled although still elevated but patient does not want to stay further because of social problem. ANNIA resolved much sooner than expected. Patient was admitted as inpatient but was discharged because of sooner recovery than expected at time of admission. Visit Charges Inpatient E&M: 42500 Disch Hosp >30min
[2022-10-26 14:25] VITALS: BP 112/71; PULSE 84; RESP 16; TEMP 36.8; O2SAT 99
[2022-10-26] MEDS: Ketorolac 15 MG/ML Vial IV (14:27)
--- NOTE | 2022-10-26 15:11 | PHA.DC.MC ---
Pharmacy Service has performed discharge medication reconciliation and counseling for this patient. 1. INSULIN GLARGINE 15UNITS SC QPM 2. INSULIN LISPRO 8UNITS TIDCM AND SS ACHS The patient's discharge medication list was reviewed for discrepancies and discrepancies were resolved. Home Medications amitriptyline 100 mg tablet 100 mg PO QHS INSOMNIA 10/25/22 citalopram 20 mg tablet 20 mg PO DAILY DEPRESSION 10/25/22 estradiol 0.01% (0.1 mg/gram) vaginal cream 1 applic vaginal UD HORMONES 10/25/22 fluticasone propionate 50 mcg/actuation nasal spray,suspension 1 spray intranasal BID NASAL CONGESTION 10/25/22 gabapentin 300 mg capsule 300 mg PO TID NERVE PAIN 10/25/22 lisinopril 10 mg tablet 10 mg PO DAILY BLOOD PRESSURE 10/25/22 omeprazole 20 mg capsule,delayed release 20 mg PO BID ACID REFLUX 10/25/22 celecoxib 200 mg capsule 200 mg PO BID PRN arthritis pain 30 days #0 caps 10/26/22 insulin glargine 100 unit/mL (3 mL) subcutaneous pen (Lantus Solostar U-100 Insulin) 15 unit (0.15 mL) subcut QPM #15 mL 10/26/22 insulin lispro 100 unit/mL subcutaneous pen (Humalog KwikPen (U-100) Insulin) 8 unit (0.08 mL) subcut TIDCM #15 mL 10/26/22 insulin lispro 100 unit/mL subcutaneous pen (Humalog KwikPen (U-100) Insulin) See Protocol subcut ACHS #0 mL 10/26/22 needle (disp) 32 gauge 32 gauge x 10/25 #100 ea 10/26/22 The patient was counseled on the following discharge medications and changes in medications for homegoing were reviewed. The Reason for Use, instructions for use, and potential side effects were reviewed for all new medications. The patient's questions regarding all of their medications were answered. The patient was able to verbally demonstrate an understanding of their discharge medications.
== END 2022-10-26 16:24 | disposition home or self-care (01) | DRG 420 ==
LOC: ED 13:37 → PCU 10-26 07:11
PROVIDERS: Admitting Provider Student in an Organized Health Care Education/Training Program; Emergency Provider Emergency Medicine; PCP Family Medicine; Visit Provider Internal Medicine
DX: E11.65 Type 2 diabetes mellitus with hyperglycemia (principal); N17.9 Acute kidney failure, unspecified; Z79.4 Long term (current) use of insulin; R07.89 Other chest pain; I10 Essential (primary) hypertension; E86.0 Dehydration; R55 Syncope and collapse; Z79.899 Other long term (current) drug therapy; Z87.891 Personal history of nicotine dependence; R42 Dizziness and giddiness
CPT/HCPCS: 36415; 71045; 78452; 80048; 81001; 82962; 83036; 84484; 85025; 85379; 93005; 93017; 93306; 96361; 96374; 97802; 99221; 99285; A9500; J7030; A4216; G0378